=== PATIENT | female | born 1990 | race Caucasian/White ===

== ENCOUNTER 2019-03-11 17:00 | Observation (INO) | payer MEDICAID ==
[~2019-03-11] VITALS: Ht 160 cm; Wt 74.1 kg
[2019-03-11] MEDS ORDERED: ZOLOFT100 MG PO (17:04)
[2019-03-11 17:32] LABS: BASOPHILS 0.1 % (0-2); EOSINOPHILS 0.4 % (0-7); HEMOGLOBIN 14.5 g/dL (12-16); IMMATURE GRANULOCYTES 0.2 % (0-5); MCH 30.9 pg (26.0-34.0); MCHC 36.3 g/dL (31.0-37.0); MCV 85.3 fL (80.0-100.0); MEAN PLATELET VOLUME 9.7 fL (7.4-10.4); MONOCYTES 6.2 % (2-11); NEUTROPHILS 87.1 % (40-80); PLATELET COUNT 168 10x3/uL (130-400); RBC 4.69 10x6/uL (4.00-5.40); RDW 12.8 % (11.5-14.5)
[2019-03-11 17:47] LABS: ALBUMIN 4.2 g/dL (3.4-5.0); ALKALINE PHOSPHATASE 67 U/L (46-116); ALT (SGPT) 18 U/L (10-68); AMYLASE - SERUM 51 U/L (25-115); BILIRUBIN - TOTAL 0.84 mg/dL (0.2-1.3); CALC OSMOLALITY 279 mosm/kg (275-300); CALCIUM 9.4 mg/dL (8.5-10.1); CARBON DIOXIDE 26.9 mmol/L (21.0-32.0); CHLORIDE - SERUM 102 mmol/L (98-107); CREATININE - SERUM 0.8 mg/dL (0.6-1.3); GLUCOSE 113 mg/dL (74-106); LIPASE 93 U/L (73-393); PROTEIN - SERUM 7.8 g/dL (6.4-8.2); SODIUM 140 mmol/L (136-145); UREA NITROGEN 12 mg/dL (7-18); eGFR NON AFRICAN AMERICAN > 90 mL/min (90-120)
[2019-03-11 18:46] LABS: APPEARANCE CLEAR (CLEAR); BILIRUBIN NEGATIVE (NEGATIVE); COLOR STRAW (YELLOW); GLUCOSE NEGATIVE (NEGATIVE); KETONE NEGATIVE (NEGATIVE); NITRITE NEGATIVE (NEGATIVE); PROTEIN NEGATIVE (NEGATIVE); SPECIFIC GRAVITY 1.005 (1.005-1.020); UROBILINOGEN NORMAL (NORMAL)
[2019-03-11 18:52] LABS: BACTERIA NONE SEEN /hpf (NONE SEEN); EPITHELIAL CELLS 0-5 /hpf (0-5); RED CELLS - URINE 0-5 /hpf (0-5); WHITE CELLS - URINE 0-5 /hpf (0-5)
[2019-03-11 19:40] LABS: HCG SERUM NEGATIVE (NEGATIVE)
--- NOTE | 2019-03-11 20:02 | NUR ---
BACK FROM CT.
--- NOTE | 2019-03-11 21:30 | NUR ---
ADMITTED TO ROOM FROM ER ALERT AND ORIENTIATED, REPORTS ABD PAIN ABOUT 5 RIGHT NOW, ORIENTIATED TO ROOM CALL LIGHT IN REACH, IV INFUSING WITHOUT DIFFICULTY, SEE SHIFT ASSESSMENT
--- NOTE | 2019-03-11 22:15 | NUR ---
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
[2019-03-11 23:09] VITALS: BP 125/70; Ht 160 cm; Wt 74.1 kg
[2019-03-12] VITALS (10 sets, daily range): BP systolic 90–125; BP diastolic 47–70
--- NOTE | 2019-03-12 07:47 | NUR ---
ALERT AND ORIENTED. LUNGS CLEAR BILATERALLY IN ALL PELAEZ. HEART SOUNDS S1 AND S2 HEARD IN ALL PELAEZ. BOWEL SOUNDS ACTIVE X 4. TENDERNESS NOTED TO ABD. SKIN INTACT WITHOUT REDNESS. DENIES NEEDS. BED LOW. CALL MIRANDA AND PERSONAL ITEMS IN REACH. WILL CONTINUE TO MONITOR.
--- NOTE | 2019-03-12 08:46 | NUR ---
PREOP MEDICATIONS GIVEN PER ORDER.
--- NOTE | 2019-03-12 10:19 | NUR ---
GONE FOR PROCEDURE.
--- NOTE | 2019-03-12 11:25 | NUR ---
PATIENT RETURNED FROM PROCEDURE. POST OP VITALS STABLE. LAP SITES X 3 WITH STERISTRIPS C/D/I.
[2019-03-12] MEDS ORDERED: COLACE100 MG PO (12:19)
[2019-03-12] MEDS ORDERED: HYDROCODON-ACE1 EAC7 PO (12:19)
--- NOTE | 2019-03-12 12:34 | NUR ---
EDUCATION PROVIDED PATIENT ABLE TO DISCHARGE WHEN READY. STATES NOT READY YET. POST OP VITALS REMAIN STABLE. AT BEDSIDE. WILL CONTINUE TO MONITOR.
--- NOTE | 2019-03-12 12:46 | NUR ---
REQUESTED AND GIVEN CHICKEN BROTH.
--- NOTE | 2019-03-12 13:28 | NUR ---
DISCHARGE EDUCATION PROVIDED BOTH WRITTEN AND VERBAL. PATIENT AND AT BEDSIDE VERBALIZED UNDERSTANDING. DENIES FURTHER QUESTIONS. IV REMOVED FROM LFA WITH TIP INTACT. PATIENT DISCHARGED HOME WITH WITH ALL BELONGINGS.
--- NOTE | 2019-03-12 15:49 | OP ---
PATIENT NAME: DAYA SOLOMON MEDICAL RECORD: [id number] :[birth year] LOCATION:D.MS [id number] ADMISSION DATE:03/11/19 SURGEON: IRINEO ROJAS MD DATE OF OPERATION: 03/12/2019 PREOPERATIVE DIAGNOSIS: Acute appendicitis with localized peritonitis. POSTOPERATIVE DIAGNOSIS: Acute appendicitis with localized peritonitis without evidence of abscess or rupture. PROCEDURE: Laparoscopic appendectomy. SURGEON: Irineo Rojas MD CURATOR HORTICULTURAL MUSEUM: None. BLOOD LOSS: Minimal. ANESTHESIA: General. COMPLICATIONS: None. The patient has had a prior midline incision. For this reason, I elected to use an open approach through insertion of the 12-mm trocar. OPERATIVE COURSE: The patient was conveyed to the operating room electively on 03/12/2019. General anesthesia was induced by the anesthesia staff. The abdomen was sterilely prepped and draped. An incision was accomplished within the patient's midline scar. I dissected down to the anterior fascia. Stay sutures were placed on either side of the anterior fascia. I incised the fascia and entered the peritoneal cavity sharply. A 12-mm trocar was placed. Under direct internal vision, 2 more trocars were placed. These were 5-mm trocars, one placed in the right lower quadrant and one placed in the left lower quadrant. During insertion of the trocar, there was no apparent injury to the bowels, any intraperitoneal or retroperitoneal structures. An abdominal survey was undertaken. The appendix was identified. It was grasped. A window was created in the mesoappendix. I then took down the mesoappendix utilizing the laparoscopic EnSeal device. I stapled across the tip of the cecum with an Endo-STEPHENIE type stapler utilizing blue loads. The appendix was placed within a bag retrieval device. It was then withdrawn through the supraumbilical fascial opening. The 12-mm trocar was placed and the abdomen was reinsufflated. I irrigated and aspirated the right lower quadrant. There was no bleeding even at low pressure of 8. All trocars were removed and the abdomen was desufflated. The fascial opening was closed with horizontal mattress #0 Vicryl sutures. The skin at all the operative sites was closed with interrupted intracuticular 3-0 Vicryl sutures. Benzoin and Steri-Strips were applied. The patient was then extubated and conveyed to the postanesthesia care unit, where she was in stable condition. TRANSINT:[id number] Voice Confirmation ID: [id number] DOCUMENT ID: [id number] OPERATIVE REPORT [id number] DAYA SOLOMON ROBERT MD at 1549 CC: [id number] DICTATION DATE: 03/12/19 1100 SENIOR ACCOUNTING CLERK: 03/12/19 1229 DIS IN 03/12/19 [place] [id number] [place] [id number]
--- NOTE | 2019-03-13 17:09 | MORECARE ---
CASE MANAGEMENT DISCHARGE SUMMARY PATIENT: DAYA SOLOMON UNIT: [id number] ADM DATE: 03/11/19 AGE: 28 : [birth year] SEX: F ROOM/BED: D.2225 AUTHOR: OMID MCKEE PHYSICIAN: REFERRING PHYSICIAN: CATALINA ROJAS MD DATE OF SERVICE: 03/13/19 Discharge Plan Patient Name: DAYA SOLOMON [facility] [facility] 1990 Planned Disposition: Anticipated Discharge Date: Discharge Date: 03/12/2019 Expected LOS: 0 Initial Reviewer: [id number] Initial Review Date: 03/13/2019 Generated: 03/13/19 6:09 pm Patient Name: DAYA SOLOMON Page [id number] at 1709 All edits/amendments must be made on the electronic document DICTATION DATE: 03/13/191707 PUBLIC HEALTH: [facility] 03/13/191707 RPT#: [id number] DC DATE:03/12/19 STATUS: DIS IN [facility] [address] [facility] [place] [address] END OF REPORT
== END 2019-03-12 13:46 | disposition home or self-care (01) ==
LOC: D.ER 17:00 → OBSVTIME 20:17 → D.MS 20:17
PROVIDERS: Emergency Medicine; ADMIT Surgery; ATTEND Surgery
DX: K35.30 Acute appendicitis with localized peritonitis, without perforation or gangrene (principal)